=== PATIENT | female | born 1975 | race African-American/Black ===

== ENCOUNTER 2017-08-28 20:56 | Emergency (ER) | payer MEDICAID ==
[2017-08-28] MEDS ORDERED: ASPIRIN PO ONE (22:05)
[2017-08-28 22:22] LABS: Basophils # (Auto) 0.1 K/mm3 (0.0-0.1); Basophils % (Auto) 0.4 % (0.0-1.8); Eosinophils % (Auto) 8.7 % (0.0-4.3); Hematocrit 31.2 % (30.3-42.9); Lymphocytes # (Auto) 2.4 K/mm3 (1.2-5.4); Lymphocytes % (Auto) 19.7 % (13.4-35.0); Mean Corpuscular HGB Conc 32 % (30-34); Mean Corpuscular Hemoglobin 24 pg (28-32); Mean Corpuscular Volume 74 fl (79-97); Monocytes # (Auto) 0.5 K/mm3 (0.0-0.8); Platelet Count 314 K/mm3 (140-440); Red Blood Count 4.21 M/mm3 (3.65-5.03); Red Cell Distribution Width 17.5 % (13.2-15.2)
[2017-08-28 22:33] LABS: BUN/Creatinine Ratio 16; Blood Urea Nitrogen 11 mg/dL (7-17); Calcium 8.9 mg/dL (8.4-10.2); Hemolysis Index 0
[2017-08-29] MEDS ORDERED: BENADRYL IV ONE (02:48)
[2017-08-29] MEDS ORDERED: REGLAN IV ONE (02:48)
[2017-08-29] MEDS ORDERED: NACL 0.9% 1000 ML 1,000 ML IV ONE (02:48)
[2017-08-29] MEDS ORDERED: TORADOL IV ONE (02:48)
[2017-08-29 03:42] LABS: Free T4 (Free Thyroxine) 1.12 ng/dL (0.76-1.46)
--- NOTE | 2017-08-29 04:20 | Cat Scan Report ---
FINAL REPORT EXAM: CT HEAD/BRAIN WO CON HISTORY: stiles, near syncope TECHNIQUE: CT imaging acquired through the head without intravenous contrast. Transaxial reformations are provided. PRIORS: None. FINDINGS: The ventricles, cisterns and sulci are normal. No intraparenchymal or extra-axial mass, hemorrhage, or mass effect. Leggett and white-matter differentiation is normal. Normal spherical shape of the globes. Paranasal sinuses and mastoid air cells are clear. No skull or facial fracture visualized. IMPRESSION: No acute intracranial abnormality.
--- NOTE | 2017-08-29 04:22 | Cat Scan Report ---
FINAL REPORT EXAM: CT ANGIO CHEST HISTORY: elevated ddimer, cp, near sycnope TECHNIQUE: CT imaging obtained through the chest in pulmonary angiographic phase following intravenous administration of contrast. Transaxial, Coronal and sagittal reformats with maximal intensity projections are provided. PRIORS: None. FINDINGS: Normal caliber main pulmonary artery. Well opacified pulmonary arterial tree. No pulmonary embolism. No pericardial effusion. Thoracic aorta is normal in course and caliber. No periaortic fluid or stranding. No pneumothorax, effusion or focal airspace disease. The central airways are patent. No bronchiectasis. Imaged portion of the upper abdomen is unremarkable. The superficial soft tissues are unremarkable. No acute bony abnormality or worrisome osseous lesions identified. IMPRESSION: No pulmonary embolism or other acute finding.
--- NOTE | 2017-08-29 04:25 | XRay Report ---
FINAL REPORT EXAM: XR CHEST ROUTINE 2V HISTORY: cp TECHNIQUE: PA and lateral chest radiographs PRIORS: None. FINDINGS: No mediastinal shift. Cardiac silhouette is not enlarged. No pneumothorax, effusion, or focal pulmonary opacity. No acute skeletal finding. IMPRESSION: No focal pulmonary opacity.
[2017-08-29 05:12] VITALS: BP 134/60
--- NOTE | 2017-08-29 05:17 | Emergency Department Report ---
ED Chest Pain HPI - General Chief Complaint: Chest Pain Stated Complaint: CHEST/ARM PAIN Time Seen by Provider: 08/29/17 02:39 Source: patient Mode of arrival: Ambulatory Limitations: No Limitations - History of Present Illness Initial Comments: 41-year-old female the past medical history of arthritis and previous cholecystectomy presents to the hospital complaining of chest pain, dizziness, headache, and near syncopal episode. Symptoms started while taking a shower. Upon leaving the shower she felt lightheaded like she was on a pass out, and felt like her heart was racing fast. Patient complains of sharp sternal chest pain reproducible with palpation. She complains of frontal headache and right arm pain. Mild shortness of breath associated with episode and nausea without vomiting. No complaints of headache, neck pain, fever, abdominal pain, nausea, vomiting, diarrhea, melena, or hematochezia. Patient does have a upper IUD She denies recent travel, history of PE/DVT, calf tenderness, or edema. Severity scale (0 -10): 0 - Related Data Previous Rx's Medication Instructions Recorded Last Taken Type Ibuprofen [Motrin] 800 mg PO Q8HR PRN #30 tablet 08/29/17 Unknown Rx Allergies Allergy/AdvReac Type Severity Reaction Status Date / Time No Known Allergies Allergy Verified 08/28/17 22:04 Heart Score - HEART Score History: Slightly suspicious EKG: Normal Age: < 45 Risk factors: No known risk factors Troponin: < normal limit HEART Score: 0 - Critical Actions Critical Actions: 0-3 pts:0.9-1.7%risk of adverse cardiac event.Candidate for discharge ED Review of Systems ROS: Stated complaint: CHEST/ARM PAIN Other details as noted in HPI Comment: All other systems reviewed and negative ED Past Medical Hx - Past Medical History Previous Medical History?: Yes Hx Arthritis: Yes - Surgical History Past Surgical History?: Yes Hx Cholecystectomy: Yes - Social History Smoking Status: Never Smoker Substance Use Type: None - Medications Home Medications: Home Medications Medication Instructions Recorded Confirmed Last Taken Type Ibuprofen [Motrin] 800 mg PO Q8HR PRN #30 tablet 08/29/17 Unknown Rx ED Physical Exam - General Limitations: No Limitations - Other Other exam information: General: No limitations, patient is alert in no acute distress Head exam: Atraumatic, normocephalic Eyes exam: Normal appearance, pupils equal reactive to light, extraocular movements intact ENT: Moist mucous membrane, normal oropharynx Neck exam: Normal inspection, full range of motion, no meningismus nontender Respiratory exam: Clear to auscultation bilateral, no wheezes, rales, crackles Cardiovascular: Normal rate and rhythm, normal heart sounds. Reproducible sternal chest wall tenderness Abdomen: Soft, nondistended, and nontender, with normal bowel sounds, no rebound, or guarding Extremity: Full range of motion normal inspection no deformity of the right arm. no calf tenderness or edema Back: Normal Inspection, full range of motion, no tenderness Neurologic: Alert, oriented x3, cranial nerves intact, no motor or sensory deficit, NIH stroke score of 0 Psychiatric: normal affect, normal mood Skin: Warm, dry, intact ED Course Vital Signs 08/28/17 08/29/17 08/29/17 21:59 01:27 02:00 Temperature 98.1 F 98.4 F Pulse Rate 89 67 69 Pulse Rate [ Lying] Respiratory 18 15 20 Rate Blood Pressure 142/73 120/70 Blood Pressure 117/62 [Left] Blood Pressure [Lying] O2 Sat by Pulse 99 100 100 Oximetry 08/29/17 08/29/17 08/29/17 03:00 03:05 03:19 Temperature Pulse Rate 66 Pulse Rate [ 61 Lying] Respiratory 15 16 Rate Blood Pressure 135/79 Blood Pressure [Left] Blood Pressure 140/76 [Lying] O2 Sat by Pulse 100 Oximetry 08/29/17 08/29/17 03:49 05:11 Temperature Pulse Rate 64 Pulse Rate [ Lying] Respiratory 16 16 Rate Blood Pressure Blood Pressure 134/60 [Left] Blood Pressure [Lying] O2 Sat by Pulse 100 Oximetry - Reevaluation(s) Reevaluation #1: 08/29/17 RN noted that patient was crying and emotional during medication administration. Patient denied pain during episode . ABA score - Aba Score Age > 65: (0) No Aspirin use within the Past 7 Days: (0) No 3 or more CAD Risk Factors: (0) No 2 or more Angina events in past 24 hrs: (0) No Known CAD with more than 50% Stenosis: (0) No Elevated Cardiac Markers: (0) No ST Deviation Greater than 0.5mm: (0) No ABA Score: 0 ED Medical Decision Making - Lab Data Result diagrams: 08/28/17 22:07 08/28/17 22:07 Lab Results 08/28/17 08/28/17 08/29/17 Range/Units 22:07 22:07 01:00 WBC 12.0 H (4.5-11.0) K/mm3 RBC 4.21 (3.65-5.03) M/mm3 Hgb 10.0 L (10.1-14.3) gm/dl Hct 31.2 (30.3-42.9) % MCV 74 L (79-97) fl MCH 24 L (28-32) pg MCHC 32 (30-34) % RDW 17.5 H (13.2-15.2) % Plt Count 314 (140-440) K/mm3 Lymph % (Auto) 19.7 (13.4-35.0) % Henry % (Auto) 4.0 (0.0-7.3) % Eos % (Auto) 8.7 H (0.0-4.3) % Baso % (Auto) 0.4 (0.0-1.8) % Lymph # 2.4 (1.2-5.4) K/mm3 Henry # 0.5 (0.0-0.8) K/mm3 Eos # 1.0 H (0.0-0.4) K/mm3 Baso # 0.1 (0.0-0.1) K/mm3 Seg Neutrophils % 67.2 (40.0-70.0) % Seg Neutrophils # 8.0 H (1.8-7.7) K/mm3 D-Dimer (0-234) ng/mlDDU Sodium 138 (137-145) mmol/L Potassium 3.7 (3.6-5.0) mmol/L Chloride 98.1 (98-107) mmol/L Carbon Dioxide 26 (22-30) mmol/L Anion Gap 18 mmol/L BUN 11 (7-17) mg/dL Creatinine 0.7 (0.7-1.2) mg/dL Estimated GFR > 60 ml/min BUN/Creatinine Ratio 16 % Glucose 107 H (65-100) mg/dL Calcium 8.9 (8.4-10.2) mg/dL Troponin T < 0.010 < 0.010 (0.00-0.029) ng/mL TSH (0.270-4.200) mlU/mL Free T4 (0.76-1.46) ng/dL HCG, Qual (Negative) 08/29/17 08/29/17 08/29/17 Range/Units 03:07 03:07 03:07 WBC (4.5-11.0) K/mm3 RBC (3.65-5.03) M/mm3 Hgb (10.1-14.3) gm/dl Hct (30.3-42.9) % MCV (79-97) fl MCH (28-32) pg MCHC (30-34) % RDW (13.2-15.2) % Plt Count (140-440) K/mm3 Lymph % (Auto) (13.4-35.0) % Henry % (Auto) (0.0-7.3) % Eos % (Auto) (0.0-4.3) % Baso % (Auto) (0.0-1.8) % Lymph # (1.2-5.4) K/mm3 Henry # (0.0-0.8) K/mm3 Eos # (0.0-0.4) K/mm3 Baso # (0.0-0.1) K/mm3 Seg Neutrophils % (40.0-70.0) % Seg Neutrophils # (1.8-7.7) K/mm3 D-Dimer 533.61 H (0-234) ng/mlDDU Sodium (137-145) mmol/L Potassium (3.6-5.0) mmol/L Chloride (98-107) mmol/L Carbon Dioxide (22-30) mmol/L Anion Gap mmol/L BUN (7-17) mg/dL Creatinine (0.7-1.2) mg/dL Estimated GFR ml/min BUN/Creatinine Ratio % Glucose (65-100) mg/dL Calcium (8.4-10.2) mg/dL Troponin T (0.00-0.029) ng/mL TSH 2.010 (0.270-4.200) mlU/mL Free T4 1.12 (0.76-1.46) ng/dL HCG, Qual Negative (Negative) - EKG Data -: EKG Interpreted by Id EKG shows normal: sinus rhythm, axis (qrs 48), QRS complexes (qrsd 98), ST-T waves (no stemi/t inv) Rate: normal (83) - EKG Data When compared to previous EKG there are: previous EKG unavailable - Radiology Data Radiology results: report reviewed REPORTS PER BY RADIOLOGIST Chest x-ray: No focal pulmonary opacity CT angiogram chest: NO pulmonary embolism or other acute findings CT head: No acute findings - Medical Decision Making ED workup unremarkable Patient is noted to have mild microcytic anemia multivitamins with iron will be encouraged Orthostatic vital signs were negative Patient feels better after Toradol, Benadryl, Reglan, and 1 L of normal saline Sternal chest pain is reproducible Patient did not have any episodes of tachycardia on the monitor during ED stay She'll be discharged to follow-up with primary care doctor or clinic - Differential Diagnosis anemia, arrhythmia, anxiety, dehydration, PE, ICH, CVA Critical Care Time: No Critical care attestation.: If time is entered above; I have spent that time in minutes in the direct care of this critically ill patient, excluding procedure time. ED Disposition Clinical Impression: Costochondritis, acute, Near syncope, Palpitation, Headache, Anemia Disposition: TO HOME OR SELFCARE Is pt being admited?: No Does the pt Need Aspirin: No Condition: Stable Instructions: Costochondritis (ED), Near Syncope (ED), Acute Headache (ED), Palpitations (ED), Anemia (ED) Additional Instructions: You have mild anemia. Take [id number] multivitamins with iron. Follow up with a primary care doctor or clinic for further workup and evaluation. Take the medications as prescribed. Return if symptoms worsen as indicated by your discharge instructions Prescriptions: Ibuprofen [Motrin] 800 mg PO Q8HR PRN #30 tablet PRN Reason: Pain, Moderate (4-6) Referrals: JENNIFER PATRICIO MD [Primary Care Provider] - 3-5 Days [facility] [Provider Group] - 3-5 Days LALO GIBSON MD [Staff Physician] - 3-5 Days Time of Disposition: 05:26 - Assessment Assessment Interval: Baseline - Level of Consciousness 1a. Level of Consciousness: alert - LOC Questions 1b. LOC Questions: answers correctly - LOC Command 1c. LOC Commands: performs tasks correctly - Best Gaze 2. Best Gaze: normal - Visual 3. Visual: no visual loss - Facial Palsy 4. Facial Palsy: normal symmetrical movement - Motor Arm 5b. Motor Arm Right: no drift 5a. Motor Arm Left: no drift - Motor Leg 6a. Motor Leg Left: no drift 6b. Motor Leg Right: no drift - Limb Ataxia 7. Limb Ataxia: absent - Sensory 8. Sensory: normal - Best Language 9. Best Language: no aphasia - Dysarthria 10. Dysarthria: normal - Extinction and Inattention 11. Extinction/Inattention: no abnormality - Scoring Total Score: 0 Stroke Severity: No Stroke Symptoms
== END 2017-08-29 05:57 | disposition home or self-care (01) ==
LOC: ED 20:56
DX: M94.0 Chondrocostal junction syndrome [Tietze] (principal); R55 Syncope and collapse; R51 Headache; R00.2 Palpitations; D64.9 Anemia, unspecified; M19.90 Unspecified osteoarthritis, unspecified site; Z90.49 Acquired absence of other specified parts of digestive tract
CPT/HCPCS: 36415; 70450; 71046; 71275; 80048; 84439; 84443; 84484; 84703; 85025; 85379; 93005; 93010; 96365; 96367; 96375; 99285; J1200; J1885; J2765; J7030; Q9967; 96361; 96374